=== PATIENT | male | born 1960 | race African-American/Black ===

== ENCOUNTER 2019-11-16 11:24 | Day surgery (SDC) | payer OTHER ==
[~2019-11-16 11:24] MED LIST: ACET650S PO; AMAN100T PEG; CHLO118L3 SWSP; DOCU100C28 PEG; LACT1CAP2 PEG; LEVE100S8 PEG; LOPE2TAB27 PEG; OXYC5CAP PEG; POLY15DR20 EACHEYE; QUET25TA5 PEG; SODI650T PEG
[2019-11-16 13:00] VITALS: BP 140/96
[2019-11-16 13:41] LABS: CALCIUM 8.4 mg/dL (8.5-10.1); CREATININE 1.3 mg/dL (0.7-1.3); GFR 69.1; POTASSIUM 4.3 mmol/L (3.5-5.1)
[2019-11-16] MEDS ORDERED: NOREPINEPHRINE VIAL 8 MG in IV DEXTROSE 5% 250 ML IV PRN (14:00)
[2019-11-16] MEDS ORDERED: VASOPRESSIN 20 UNIT in IV DEXTROSE 5% 100ML 100 ML IV PRN (14:00)
[2019-11-16] MEDS ORDERED: IV DEXTROSE 5% 1,000 ML IV SCH (14:00)
[2019-11-16] MEDS ORDERED: VECURONIUM BOLUS 10 MG VIAL. IV ONE (14:00)
[2019-11-16] MEDS ORDERED: IV 1/2 NORMAL SALINE 1,000 ML IV SCH (14:00)
[2019-11-16 14:20] VITALS: BP 133/88
[2019-11-16 15:00] VITALS: BP 143/90
[2019-11-16 15:27] LABS: BASE EXCESS ABG 0 mmol/L (-3-3); HCO3 ABG 26 mmol/L (21-28); PCO2 ABG 48 mmHg (35-46); PO2 ABG > 503 mmHg (75-108); SAT O2 ABG 100 % (92-99)
[2019-11-16 16:00] VITALS: BP 194/110
[2019-11-16 16:22] LABS: BASO % 0 % (0-3); EOS % 0 % (0-3); HEMATOCRIT 26.1 % (39.0-53.0); HEMOGLOBIN 8.4 g/dL (13.0-17.5); LYMPH # 0.7 x10^3/uL (1.0-4.8); LYMPH % 3 % (24-48); MEAN CORPUSCULAR HEMOGLOBIN 29 pg (25-35); MEAN CORPUSCULAR HGB CONC 32 g/dL (31-37); MEAN CORPUSCULAR VOLUME 91 fL (79-100); MONO # 0.5 x10^3/uL (0.0-1.1); MONO % 2 % (0-9); NEUT # 23.4 x10^3/uL (1.8-7.7); NEUT % 95 % (31-73); PLATELET COUNT 146 x10^3/uL (140-400); RED BLOOD COUNT 2.86 x10^6/uL (4.30-5.70); RED CELL DISTRIBUTION WIDTH 14.4 % (11.5-14.5); WHITE BLOOD COUNT 24.6 x10^3/uL (4.0-11.0)
[2019-11-16 16:30] LABS: CALCIUM 8.5 mg/dL (8.5-10.1); CREATININE 1.3 mg/dL (0.7-1.3); GFR 69.1; POTASSIUM 4.2 mmol/L (3.5-5.1)
[2019-11-16 16:36] LABS: ALBUMIN 2.5 g/dL (3.4-5.0); DIRECT BILIRUBIN 0.3 mg/dL (0.0-0.2); TOTAL BILIRUBIN 0.5 mg/dL (0.2-1.0)
[2019-11-16 17:00] VITALS: BP 190/110
[2019-11-16 17:09] LABS: ALBUMIN 2.5 g/dL (3.4-5.0); DIRECT BILIRUBIN 0.3 mg/dL (0.0-0.2); PHOSPHORUS 3.2 mg/dL (2.6-4.7); TOTAL BILIRUBIN 0.5 mg/dL (0.2-1.0)
--- NOTE | 2019-11-16 17:34 | RAD ---
Exam: Chest one view INDICATION: Shortness of breath TECHNIQUE: Frontal view of the chest Comparisons: 11/15/2019 FINDINGS: Endotracheal tube with tip approximately 4 cm above the remedios. Right IJ catheter with tip in the SVC. There is an enteric tube which traverses below the diaphragm distal tip not visualized. The cardiomediastinal silhouette and pulmonary vessels are within normal limits. Subtle patchy bilateral airspace disease particularly in the left perihilar region. IMPRESSION: 1. Lines and tubes described above. 2. Subtle patchy bilateral airspace disease particularly in the left perihilar region. May represent atelectasis versus developing consolidative process. Electronically signed by: Ayala Rios MD (11/16/2019 5:31 PM) [id number]
[2019-11-16 18:00] VITALS: BP 124/87
--- NOTE | 2019-11-17 08:01 | RAD ---
11/17/2019 5:55 AM Procedure ultrasound-guided liver biopsy in preparation for possible organ donation. Discussion: Interventional radiology was consulted for liver biopsy in preparation for possible organ donation. . All elements of maximal sterile barrier technique including the use of a cap, mask, sterile gown, sterile gloves, large sterile sheet, appropriate hand hygiene, and 2% chlorhexidine for cutaneous antisepsis (or acceptable alternative antiseptic per current guidelines) were followed for this procedure. Ultrasound evaluation was performed the liver demonstrating no gross abnormalities. Inferior right liver was chosen for biopsy. 17-gauge needle was advanced into the liver under direct ultrasound guidance. 18-gauge core biopsy was performed. The needle was removed. Gelfoam of the tract was performed as a guiding needle was removed. No immediate complications were identified. Impression: Ultrasound-guided liver biopsy in preparation for possible organ donation
[2019-11-17 10:23] LABS: BASE EXCESS ABG 2 mmol/L (-3-3); HCO3 ABG 27 mmol/L (21-28); PCO2 ABG 43 mmHg (35-46); PO2 ABG > 503 mmHg (75-108); SAT O2 ABG 100 % (92-99)
[2019-11-17 10:24] LABS: FIO2 ABG 35%
[2019-11-17 10:39] LABS: ALBUMIN 2.3 g/dL (3.4-5.0); ALBUMIN/GLOBULIN RATIO 0.6 (1.0-1.7); CALCIUM 8.8 mg/dL (8.5-10.1); CREATININE 1.2 mg/dL (0.7-1.3); GFR 75.8; POTASSIUM 4.6 mmol/L (3.5-5.1); TOTAL BILIRUBIN 0.4 mg/dL (0.2-1.0); TOTAL PROTEIN 5.9 g/dL (6.4-8.2)
[2019-11-17 10:46] LABS: BASO % 0 % (0-3); EOS % 0 % (0-3); HEMATOCRIT 24.8 % (39.0-53.0); HEMOGLOBIN 7.9 g/dL (13.0-17.5); LYMPH # 0.8 x10^3/uL (1.0-4.8); LYMPH % 3 % (24-48); MEAN CORPUSCULAR HEMOGLOBIN 29 pg (25-35); MEAN CORPUSCULAR HGB CONC 32 g/dL (31-37); MEAN CORPUSCULAR VOLUME 90 fL (79-100); MONO # 0.9 x10^3/uL (0.0-1.1); MONO % 4 % (0-9); NEUT # 25.2 x10^3/uL (1.8-7.7); NEUT % 94 % (31-73); PLATELET COUNT 122 x10^3/uL (140-400); RED BLOOD COUNT 2.76 x10^6/uL (4.30-5.70); RED CELL DISTRIBUTION WIDTH 14.4 % (11.5-14.5)
[2019-11-17 10:57] LABS: BILIRUBIN,URINE NEGATIVE (NEG); CLARITY,URINE CLEAR; COLOR,URINE YELLOW; NITRITE,URINE NEGATIVE (NEG); PROTEIN,URINE NEGATIVE (NEG-TRACE); UROBILINOGEN,URINE 0.2 mg/dL (0.2 mg/dL)
[2019-11-17 11:06] LABS: BACTERIA,URINE FEW /HPF (0-FEW); SQUAMOUS EPITHELIAL CELL,UR FEW /LPF; WBC,URINE OCC /HPF (0-4)
[2019-11-17 11:23] LABS: % BANDS 4 % (0-9); % MONOS 3 % (0-10); % SEGS 93 % (35-66)
[2019-11-17 11:24] LABS: PLT ESTIMATE ADEQUATE (ADEQUATE)
[2019-11-17] MEDS ORDERED: ceFAZolin SODIUM IV Push 1 GM VIAL. IVP ONE (12:30)
[2019-11-17] MEDS ORDERED: ROCURONIUM 50 MG/5 ML VIAL. ONE (15:28)
[2019-11-17] MEDS ORDERED: SEVOFLURANE 61 TO 120 MINUTES. IH ONE (16:56)
== END 2019-11-17 23:59 | disposition expired ==
LOC: SDC 11:24
PROVIDERS: ATTEND Surgery
DX: Z52.6 Liver donor (principal); Z52.4 Kidney donor
CPT/HCPCS: 36415; 36600; 47000; 71045; 76942; 80048; 80053; 80076; 81001; 82040; 82150; 82247; 82248; 82310; 82805; 82962; 82977; 83605; 83615; 83690; 83735; 84075; 84100; 84155; 84450; 84460; 85007; 85025; 85384; 85610; 85730; 94003; J0690; J3490; J7060